=== PATIENT | female | born 2000 | race Caucasian/White ===

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

== ENCOUNTER 2022-06-21 20:45 | Emergency (ER) | payer OTHER ==
[2022-06-21 21:04] VITALS: BP 108/71; PULSE 90; RESP 20; TEMP 98.1; BMI 26.4
[2022-06-21] MEDS ORDERED: DEXAMETHASONE LIQUID 0.5 MG/5 ML PO ONE (22:07)
[2022-06-21] MEDS ORDERED: DEXAMETHASONE SOD PHOSPHATE 10 MG/1 ML VIAL ONE (22:08)
[2022-06-21] MEDS ORDERED: ALBUTEROL SO4 2.5/IPRATROPIUM 0.5 INH SOL 3 ML VIAL.NEB. NEB ONE (22:08)
[2022-06-21] MEDS: ALBUTEROL SO4 2.5/IPRATROPIUM 0.5 INH SOL 3 ML VIAL.NEB. NEB SCH (22:12)
== END 2022-06-21 23:11 | disposition home or self-care (01) ==
LOC: JERFT 20:45 → JER 20:45 → JERFT 23:11
PROC: 3E0F7GC Introduction of Other Therapeutic Substance into Respiratory Tract, Via Natural or Artificial Opening (ICD-10-PCS; principal; 2022-06-21)
DX: U07.1 COVID-19 (principal); J45.21 Mild intermittent asthma with (acute) exacerbation
CPT/HCPCS: 0241U-QW; 71046-TC-FY; 99284-25